=== PATIENT | female | born 1995 | race American Indian/Alaskan Native ===

== ENCOUNTER 2019-10-22 20:25 | Inpatient (IN) | payer BC, OTHER ==
[2019-10-22] MEDS ORDERED: Tranexamic Acid 1,000 MG in Sodium Chloride 0.9% 100 ML IV PRN (22:15)
[2019-10-22] MEDS ORDERED: Butorphanol 1 MG/ML SDV IVPUSH PRN (22:15)
[2019-10-22] MEDS ORDERED: Water For Irrigation,Sterile 1,000 ML Container IRR PRN (22:15)
[2019-10-22] MEDS ORDERED: Misoprostol 200 MCG Tab PO PRN (22:15)
[2019-10-22] MEDS ORDERED: Sodium Chloride 0.9% 2.5 ML Syringe FLUSH PRN (22:15)
[2019-10-22] MEDS ORDERED: Sodium Chloride 0.9% 10 ML SDV IV PRN (22:15)
[2019-10-22] MEDS ORDERED: Methylergonovine 0.2 MG/1 ML Amp IM PRN (22:15)
[2019-10-22] MEDS ORDERED: Lactated Ringers 1,000 ML IV SCH (22:15)
[2019-10-22] MEDS ORDERED: Lidocaine 1% 50 ML MDV INJECT PRN (22:15)
[2019-10-22] MEDS ORDERED: Nalbuphine 10 MG/1 ML Vial IVPUSH PRN (22:15)
[2019-10-22] MEDS ORDERED: Sodium Chloride 0.9% 10 ML Syringe FLUSH PRN (22:15)
[2019-10-22] MEDS ORDERED: Carboprost Tromethamine 250 MCG/1 ML Amp IM PRN (22:15)
[2019-10-22] MEDS: Oxytocin/0.9 % Sodium Chloride 30 UNIT/500 ML BAG IV SCH (23:10)
[2019-10-22] MEDS ORDERED: fentaNYL 100 MCG/2 ML SDV ONE (23:46)
[2019-10-22] MEDS ORDERED: Midazolam 1 MG/ML 2 ML SDV ONE (23:51)
[2019-10-23] MEDS ORDERED: Benzocaine/Menthol 20%-0.5% Spray 78 GM Cannister TOP PRN (00:15)
[2019-10-23] MEDS ORDERED: oxyCODONE 5 MG Tab PO PRN (00:15)
[2019-10-23] MEDS ORDERED: Aluminum Hydroxide/Magnesium Hydroxide/Simethicone Susp 30 ML Cup PO PRN (00:15)
[2019-10-23] MEDS ORDERED: Lanolin 100% Cream 7 GM Tube TOP PRN (00:15)
[2019-10-23] MEDS ORDERED: Ondansetron 4 MG/2 ML SDV IVPUSH PRN (00:15)
[2019-10-23] MEDS ORDERED: Witch Hazel Medicated Pads 40/Jar TOP PRN (00:15)
[2019-10-23] MEDS ORDERED: Bisacodyl 10 MG Supp RECTAL PRN (00:15)
[2019-10-23] MEDS ORDERED: Ibuprofen 400 MG Tab PO PRN (00:15)
[2019-10-23] MEDS ORDERED: Ibuprofen 800 MG Tab PO PRN (00:15)
[2019-10-23] MEDS ORDERED: Docusate Sodium 100 MG Cap PO PRN (00:15)
[2019-10-23] MEDS ORDERED: Acetaminophen 500 MG Tab PO PRN (00:15)
--- NOTE | 2019-10-23 00:23 | PCM.SN ---
- Free Text/Narrative Note: 2250: Nurse called for epidural per patient request. Arrived at 2301 and patient already pushing with Dr. Quinonez in the room. On standby for any complications or emergencies. Morgan Sheehan CRNA. 2348: Dr Quinonez requests pain control for assistance with removal of retained placenta immediately post delivery. Patient having extreme pain with manual attempts. 2351: Fentanyl 100 mcg given IV. VSS. Patient still with lots of pain with attempt to remove. Explained effects of versed to help patient better manage pain. Patient verbalizes understanding and ok to receive. 2355: Versed 2 mg and Fentanyl 50 mcg given IV. 6L O2 placed on patient. VSS. 2357: Fentanyl 50 mcg given IV. Another attempt to remove retained placenta per Dr. Quinonez was unsuccessful due to patient thriving in pain. At this time, Dr. Quinonez plans to take patient to OR for removal of retained placenta. Consent will be obtained via 2 providers or from patient's mother as patient is no longer able to give informed consent due to medications given for initial attempts to remove retained placenta. Significant other present is boyfriend. Morgan Sheehan CRNA.
--- NOTE | 2019-10-23 00:26 | PCM.OPNOTE ---
- General Post-Op/Procedure Note Date of Surgery/Procedure: 10/23/19 Operative Procedure(s): /IP Findings: Viable female APGARs 8, 9 weight 6 lb 8 oz Retained placenta Pre Op Diagnosis: 38/4 week IUP. Active labor Post-Op Diagnosis: Same. Retained placenta Anesthesia Technique: Local (pudendal) Primary Surgeon: Allison Quinonez EBL in mLs: 300 Drain/Tube Comments:: none known Complications: none known Condition: Good Free Text/Narrative:: Dictation [id number]
--- NOTE | 2019-10-23 00:28 | PCM.PREANE ---
Preanesthetic Assessment - Procedure Proposed Procedure: Manual extraction of retained placenta & curretage status post Delivery. - Anesthesia/Transfusion/Family Hx Anesthesia History: No Prior Anesthesia Family History of Anesthesia Reaction: No Transfusion History: No Prior Transfusion(s) - Review of Systems General: No Symptoms Pulmonary: No Symptoms Cardiovascular: No Symptoms Gastrointestinal: No Symptoms Neurological: No Symptoms Other: Reports: None - Physical Assessment Height: 5 ft 9 in ASA Class: 2E Mental Status: Alert & Oriented x3 Airway Class: Mallampati = 1 Dentition: Reports: Normal Dentition Thyro-Mental Finger Breadths: 3 Mouth Opening Finger Breadths: 3 ROM/Head Extension: Full Lungs: Clear to Auscultation, Normal Respiratory Effort Cardiovascular: Regular Rate, Regular Rhythm - Lab Values: Laboratory Last Values WBC 16.71 K/uL (4.0-11.0) H 10/22/19 22:45 RBC 4.27 M/uL (4.30-5.90) L 10/22/19 22:45 Hgb 12.9 g/dL (12.0-16.0) 10/22/19 22:45 Hct 38.7 % (36.0-46.0) 10/22/19 22:45 MCV 90.6 fL (80.0-98.0) 10/22/19 22:45 MCH 30.2 pg (27.0-32.0) 10/22/19 22:45 MCHC 33.3 g/dL (31.0-37.0) 10/22/19 22:45 RDW Std Deviation 43.4 fl (28.0-62.0) 10/22/19 22:45 RDW Coeff of Jeronimo 13 % (11.0-15.0) 10/22/19 22:45 Plt Count 301 K/uL (150-400) 10/22/19 22:45 MPV 9.70 fL (7.40-12.00) 10/22/19 22:45 Nucleated RBC % 0.0 /100WBC 10/22/19 22:45 Nucleated RBCs # 0 K/uL 10/22/19 22:45 Urine Color YELLOW 10/22/19 20:15 Urine Appearance SLT CLOUDY 10/22/19 20:15 Urine pH 7.0 (5.0-8.0) 10/22/19 20:15 Ur Specific [place] 1.015 (1.001-1.035) 10/22/19 20:15 Urine Protein NEGATIVE mg/dL (NEGATIVE) 10/22/19 20:15 Urine Glucose (UA) NEGATIVE mg/dL (NEGATIVE) 10/22/19 20:15 Urine Ketones NEGATIVE mg/dL (NEGATIVE) 10/22/19 20:15 Urine Occult Blood NEGATIVE (NEGATIVE) 10/22/19 20:15 Urine Nitrite NEGATIVE (NEGATIVE) 10/22/19 20:15 Urine Bilirubin NEGATIVE (NEGATIVE) 10/22/19 20:15 Urine Urobilinogen 0.2 EU/dL (<2.0) 10/22/19 20:15 Ur Leukocyte Esterase MODERATE (NEGATIVE) H 10/22/19 20:15 Urine RBC 0-2 (0-2/HPF) 10/22/19 20:15 Urine WBC 2-5 (0-5/HPF) 10/22/19 20:15 Ur Epithelial Cells FEW (NONE-FEW) 10/22/19 20:15 Urine Bacteria 1+ (NEGATIVE) H 10/22/19 20:15 Membrane Rupture POSITIVE 10/22/19 22:00 Blood Type A POSITIVE 10/22/19 22:53 Antibody Screen NEGATIVE 10/22/19 22:53 - Allergies Allergies/Adverse Reactions: Allergies Allergy/AdvReac Type Severity Reaction Status Date / Time No Known Allergies Allergy Verified 09/22/19 17:00 - Anesthesia Plan Free Text/Narrative:: Plan MAC anesthesia with sedation or general anesthesia using ETT. - Acknowledgements Anesthesia Type Planned: General Anesthesia, MAC Pt an Appropriate Candidate for the Planned Anesthesia: Yes Alternatives and Risks of Anesthesia Discussed w Pt/Guardian: Yes Pt/Guardian Understands and Agrees with Anesthesia Plan: Yes PreAnesthesia Questionnaire - Past Health History Medical/Surgical History: Denies Medical/Surgical History HEENT History: Reports: None Cardiovascular History: Reports: None Respiratory History: Reports: None Gastrointestinal History: Reports: GERD Genitourinary History: Reports: None SPINNERET PERSON History: Reports: : 2 Para: 2 Other OB/BYN History: Immediate post delivery (retained placenta) Musculoskeletal History: Reports: None Neurological History: Reports: None Psychiatric History: Reports: None Endocrine/Metabolic History: Reports: Hypothyroidism Hematologic History: Reports: None Immunologic History: Reports: None Oncologic (Cancer) History: Reports: None Dermatologic History: Reports: None - Infectious Disease History Infectious Disease History: Reports: None - Past Surgical History Head Surgeries/Procedures: Reports: None - SUBSTANCE USE Smoking Status *Q: Never Smoker - HOME MEDS Home Medications: Home Meds Levothyroxine [Synthroid] 50 mcg PO DAILY 08/05/19 [History] - CURRENT (IN HOUSE) MEDS Current Meds: Current Medications Acetaminophen (Tylenol Extra Strength) 500 mg PO Q4H PRN PRN Reason: Pain Acetaminophen (Tylenol Extra Strength) 1,000 mg PO Q4H PRN PRN Reason: Pain Al Hydroxide/Mg Hydroxide (Mag-Al Plus) 30 ml PO Q8H PRN PRN Reason: Heartburn Benzocaine/Menthol (Dermoplast Pain Relief 20%-0.5% [place]) 78 gm TOP ASDIRECTED PRN PRN Reason: Perineal Comfort Measure Bisacodyl (Dulcolax) 10 mg RECTAL ONETIME PRN PRN Reason: Constipation Butorphanol Tartrate (Stadol) 1 mg IVPUSH Q1H PRN PRN Reason: Pain Docusate Sodium (Colace) 100 mg PO BID PRN PRN Reason: Constipation Emollient Ointment (Lansinoh Hpa) 0 gm TOP ASDIRECTED PRN PRN Reason: Sore Nipples Lactated Ringer's (Ringers, Lactated) 1,000 mls @ 150 mls/hr IV ASDIRECTED BRIAN Oxytocin/Sodium Chloride (Oxytocin 30 Unit/500 Ml-Ns) 30 unit in 500 mls @ 999 mls/hr IV TITRATE BRIAN Tranexamic Acid 1,000 mg/ (Sodium Chloride) 110 mls @ 660 mls/hr IV ONETIME PRN PRN Reason: Bleeding Ibuprofen (Motrin) 400 mg PO Q4H PRN PRN Reason: Pain Ibuprofen (Motrin) 800 mg PO Q6H PRN PRN Reason: Pain Lidocaine HCl (Xylocaine 1%) 50 ml INJECT ONETIME PRN PRN Reason: Laceration repair Methylergonovine Maleate (Methergine) 0.2 mg IM ASDIRECTED PRN PRN Reason: Post Hemorrhage Nalbuphine HCl (Nubain) 10 mg IVPUSH Q1H PRN PRN Reason: Pain (severe 7-10) Ondansetron HCl (Zofran) 4 mg IVPUSH Q6H PRN PRN Reason: Nausea/Vomiting Oxycodone HCl (Oxycodone) 5 mg PO Q2H PRN PRN Reason: Pain Sodium Chloride (Saline Flush) 10 ml FLUSH ASDIRECTED PRN PRN Reason: Keep Vein Open Sodium Chloride (Saline Flush) 2.5 ml FLUSH ASDIRECTED PRN PRN Reason: Keep Vein Open Sodium Chloride (Normal Saline) 10 ml IV ASDIRECTED PRN PRN Reason: IV Use Sterile Water (Sterile Water For Irrigation) 1,000 ml IRR ASDIRECTED PRN PRN Reason: delivery Naresh Bernard (Tucks) 1 pad TOP ASDIRECTED PRN PRN Reason: comfort care Discontinued Medications Carboprost Tromethamine (Hemabate Ds) 250 mcg IM ASDIRECTED PRN PRN Reason: Post Hemorrhage Stop: 10/23/19 00:12 Fentanyl (Sublimaze) Confirm Administered Dose 200 mcg .ROUTE .STK-MED ONE Stop: 10/22/19 23:47 Midazolam HCl (Versed 1 Mg/Ml) Confirm Administered Dose 2 mg .ROUTE .STK-MED ONE Stop: 10/22/19 23:52 Misoprostol (Cytotec) 200 mcg PO ONETIME PRN PRN Reason: Post Hemorrhage
[2019-10-23] MEDS ORDERED: Propofol 200 MG/20 ML SDV ONE (00:35)
[2019-10-23] MEDS ORDERED: fentaNYL 100 MCG/2 ML SDV ONE (00:35)
[2019-10-23] MEDS: Oxytocin/0.9 % Sodium Chloride 30 UNIT/500 ML BAG IV SCH (00:36)
[2019-10-23] MEDS ORDERED: Midazolam 1 MG/ML 2 ML SDV ONE (00:45)
[2019-10-23] MEDS ORDERED: Ampicillin/Sulbactam Na 3 GM in Sodium Chloride 0.9% 100 ML IV ONE (01:17)
--- NOTE | 2019-10-23 01:24 | PCM.OPNOTE ---
- General Post-Op/Procedure Note Date of Surgery/Procedure: 10/23/19 Operative Procedure(s): Manual extraction of placenta with curretage Findings: Retained placenta, extracted Pre Op Diagnosis: Retained placenta Post-Op Diagnosis: Same Anesthesia Technique: General ET Tube Primary Surgeon: Allison Quinonez EBL in mLs: 100 (400 ml total with ) Complications: none known Condition: Stable Free Text/Narrative:: Dictation [id number]
[2019-10-23] MEDS ORDERED: Ketorolac 30 MG/ML SDV ONE (01:26)
[2019-10-23] MEDS ORDERED: Ondansetron 4 MG/2 ML SDV ONE (01:26)
[2019-10-23] MEDS ORDERED: Sodium Chloride 0.9% 100 ML ONE (01:29)
--- NOTE | 2019-10-23 02:05 | PCM.POSTAN ---
POST ANESTHESIA ASSESSMENT - MENTAL STATUS Mental Status: Alert, Oriented - VITAL SIGNS Vital Signs: Last Vital Signs Temp 36.3 C 10/23/19 01:11 Pulse 89 10/23/19 01:55 Resp 2 L 10/23/19 01:55 BP 109/73 10/23/19 01:55 Pulse Ox 96 10/23/19 01:55 - RESPIRATORY Respiratory Status: Respiratory Rate WNL, Airway Patent, O2 Saturation Stable - CARDIOVASCULAR CV Status: Pulse Rate WNL, Blood Pressure Stable - GASTROINTESTINAL GI Status: No Symptoms - PAIN Pain Score: 0 - POST OP HYDRATION Hydration Status: Adequate & Stable - OBSERVATIONS Free Text/Narrative:: Patient doing well. No anesthesia concerns from patient. No anesthesia complications noted.
--- NOTE | 2019-10-23 03:20 | OR ---
SURGEON: Allison Quinonez M.D. DATE OF PROCEDURE: 10/23/2019 PREOPERATIVE DIAGNOSES: 1. 38 and 4 weeks' intrauterine . 2. Active labor. POSTOPERATIVE DIAGNOSES: 1. 38 and 4 weeks' intrauterine . 2. Active labor. 3. Retained placenta. ANESTHESIA: Local, pudendal. ESTIMATED BLOOD LOSS: 300 mL. COMPLICATIONS: Retained placenta. FINDINGS: Viable female. score of 8 at one minute and 9 at five minutes. Weight is 6 pounds 8 ounces. Retained placenta. DISPOSITION: The patient to OR for removal of placenta under anesthesia. Infant to nursery. PROCEDURE DETAIL: Tani is a 24-year-old, G2, P1, at 38 and 4 weeks' gestational age, presented on the evening of 10/22/2019 with rare contractions, however, they persisted throughout the day. Therefore, she was observed, and with observation, contractions became more regular. She did notice a gush of fluid. She was found to have gross rupture of membranes, clear fluid. She is group B beta strep negative, and shortly thereafter, contractions became much more intense very quickly. She progressed from 4 to 6 cm within a matter of minute. heart tones are 140s with variability. The patient was admitted. Routine labs were drawn. IV hydration was initiated. She did request epidural; however, she progressed quickly to 7 and then complete, was feeling the urge to push. The patient was placed in modified dorsal lithotomy position, was prepped and draped in the usual aseptic manner. With the urge, began pushing efforts, pushed adequately, however, was very uncomfortable and therefore underwent a pudendal block. The ischial spine on either side were palpated and just lateral to this, the pudendal nerves were able to be palpated. 5 mL of 1% lidocaine with epi was infused on the right side followed by the left side and the midline perineum. The patient tolerated this well, became more comfortable, continued with pushing efforts, was able to deliver the 's head atraumatically spontaneously, followed by anterior shoulder, posterior shoulder, and remainder of the body without difficulty. The infant's oropharynx and nares were bulb suctioned. The infant was handed off to her mother with attending nursing staff at the side. After a delay, the cord was clamped x2 and cut. Cord arterial, cord venous, cord blood sampling was obtained. Light pressure was applied. The placenta did not easily deliver. 30 units of Pitocin was delivered in 500 mL of IV fluid. With fundal massage and observation, the placenta still did not deliver even after 30 minutes of bleeding. The patient did not have regional anesthesia. Therefore, with Anesthesia present, she underwent dosing of fentanyl and Versed and attempted manual extraction. However, the patient was still quite uncomfortable. Therefore, at this point, I have opted to proceed to the OR for exam under anesthesia with manual placental extraction. The patient remains stable at this time. The nursing checking department supervisor in the OR crew has been called. Hemostasis is overall evident and vital signs are stable. HADLEY / SHANNAN /[id number]
[2019-10-23] MEDS: Acetaminophen 500 MG Tab PO PRN ×2 (07:49→20:24)
[2019-10-23] MEDS ORDERED: Sodium Chloride 0.9% 50 ML ONE ×3 (07:56→19:46)
[2019-10-23] MEDS: Ampicillin/Sulbactam Na 1.5 GM in Sodium Chloride 0.9% 50 ML IV SCH ×3 (08:01→20:10)
--- NOTE | 2019-10-23 11:53 | PCM.PNPP ---
- General Info Date of Service: 10/23/19 Functional Status: Reports: Pain Controlled, Tolerating Diet, Ambulating, Urinating - Review of Systems General: Reports: Fatigue. Denies: Fever, Weakness Pulmonary: Denies: Shortness of Breath Cardiovascular: Denies: Chest Pain, Palpitations, Lightheadedness Gastrointestinal: Denies: Abdominal Pain, Nausea, Vomiting Genitourinary: Denies: Flank Pain Musculoskeletal: Reports: No Symptoms Skin: Reports: No Symptoms Neurological: Reports: No Symptoms Psychiatric: Reports: No Symptoms - General Info Date of Service: 10/23/19 - Patient Data Vital Signs - Most Recent: Last Vital Signs Temp 36.5 C 10/23/19 08:55 Pulse 89 10/23/19 06:00 Resp 19 10/23/19 08:55 BP 121/74 10/23/19 08:55 Pulse Ox 98 10/23/19 08:55 Weight - Most Recent: 94.801 kg I&O - Last 24 Hours: Intake & Output 10/22/19 10/23/19 10/23/19 22:59 06:59 14:59 Intake Total 600 Balance 600 Lab Results - Last 24 Hours: Laboratory Results - last 24 hr 10/22/19 10/22/19 10/22/19 Range/Units 20:15 20:15 22:00 WBC (4.0-11.0) K/uL RBC (4.30-5.90) M/uL Hgb (12.0-16.0) g/dL Hct (36.0-46.0) % MCV (80.0-98.0) fL MCH (27.0-32.0) pg MCHC (31.0-37.0) g/dL RDW Std Deviation (28.0-62.0) fl RDW Coeff of Jeronimo (11.0-15.0) % Plt Count (150-400) K/uL MPV (7.40-12.00) fL Nucleated RBC % /100WBC Nucleated RBCs # K/uL Cord ABG pH (7.18-7.38) Cord ABG Base Excess (-10--2) Cord VBG pH (7.25-7.45) Cord VBG Base Excess (-10--2) Urine Color YELLOW YELLOW Urine Appearance SLT CLOUDY SLT CLOUDY Urine pH 7.0 7.0 (5.0-8.0) Ur Specific [place] 1.015 1.015 (1.001-1.035) Urine Protein NEGATIVE NEGATIVE (NEGATIVE) mg/dL Urine Glucose (UA) NEGATIVE NEGATIVE (NEGATIVE) mg/dL Urine Ketones NEGATIVE NEGATIVE (NEGATIVE) mg/dL Urine Occult Blood NEGATIVE NEGATIVE (NEGATIVE) Urine Nitrite NEGATIVE NEGATIVE (NEGATIVE) Urine Bilirubin NEGATIVE NEGATIVE (NEGATIVE) Urine Urobilinogen 0.2 0.2 (<2.0) EU/dL Ur Leukocyte Esterase MODERATE H MODERATE H (NEGATIVE) Urine RBC 0-2 (0-2/HPF) Urine WBC 2-5 (0-5/HPF) Ur Epithelial Cells FEW (NONE-FEW) Urine Bacteria 1+ H (NEGATIVE) Membrane Rupture POSITIVE Blood Type Antibody Screen 10/22/19 10/22/19 10/22/19 Range/Units 22:45 22:53 23:07 WBC 16.71 H (4.0-11.0) K/uL RBC 4.27 L (4.30-5.90) M/uL Hgb 12.9 (12.0-16.0) g/dL Hct 38.7 (36.0-46.0) % MCV 90.6 (80.0-98.0) fL MCH 30.2 (27.0-32.0) pg MCHC 33.3 (31.0-37.0) g/dL RDW Std Deviation 43.4 (28.0-62.0) fl RDW Coeff of Jeronimo 13 (11.0-15.0) % Plt Count 301 (150-400) K/uL MPV 9.70 (7.40-12.00) fL Nucleated RBC % 0.0 /100WBC Nucleated RBCs # 0 K/uL Cord ABG pH 7.220 (7.18-7.38) Cord ABG Base Excess -6 (-10--2) Cord VBG pH 7.306 (7.25-7.45) Cord VBG Base Excess -6 (-10--2) Urine Color Urine Appearance Urine pH (5.0-8.0) Ur Specific [place] (1.001-1.035) Urine Protein (NEGATIVE) mg/dL Urine Glucose (UA) (NEGATIVE) mg/dL Urine Ketones (NEGATIVE) mg/dL Urine Occult Blood (NEGATIVE) Urine Nitrite (NEGATIVE) Urine Bilirubin (NEGATIVE) Urine Urobilinogen (<2.0) EU/dL Ur Leukocyte Esterase (NEGATIVE) Urine RBC (0-2/HPF) Urine WBC (0-5/HPF) Ur Epithelial Cells (NONE-FEW) Urine Bacteria (NEGATIVE) Membrane Rupture Blood Type A POSITIVE Antibody Screen NEGATIVE Med Orders - Current: Current Medications Acetaminophen (Tylenol Extra Strength) 500 mg PO Q4H PRN PRN Reason: Pain Acetaminophen (Tylenol Extra Strength) 1,000 mg PO Q4H PRN PRN Reason: Pain Last Admin: 10/23/19 07:49 Dose: 1,000 mg Al Hydroxide/Mg Hydroxide (Mag-Al Plus) 30 ml PO Q8H PRN PRN Reason: Heartburn Benzocaine/Menthol (Dermoplast Pain Relief 20%-0.5% [place]) 78 gm TOP ASDIRECTED PRN PRN Reason: Perineal Comfort Measure Bisacodyl (Dulcolax) 10 mg RECTAL ONETIME PRN PRN Reason: Constipation Butorphanol Tartrate (Stadol) 1 mg IVPUSH Q1H PRN PRN Reason: Pain Last Admin: 10/22/19 22:30 Dose: 1 mg Docusate Sodium (Colace) 100 mg PO BID PRN PRN Reason: Constipation Emollient Ointment (Lansinoh Hpa) 0 gm TOP ASDIRECTED PRN PRN Reason: Sore Nipples Lactated Ringer's (Ringers, Lactated) 1,000 mls @ 150 mls/hr IV ASDIRECTED [facility] Last Admin: 10/23/19 06:39 Dose: 150 mls/hr Oxytocin/Sodium Chloride (Oxytocin 30 Unit/500 Ml-Ns) 30 unit in 500 mls @ 999 mls/hr IV TITRATE [facility] Last Admin: 10/23/19 00:36 Dose: 999 mls/hr Tranexamic Acid 1,000 mg/ (Sodium Chloride) 110 mls @ 660 mls/hr IV ONETIME PRN PRN Reason: Bleeding Ampicillin Sodium/Sulbactam (Sodium 1.5 gm/ Sodium Chloride) 50 mls @ 200 mls/ hr IV Q6H [facility] Stop: 10/23/19 19:44 Last Admin: 10/23/19 08:01 Dose: 200 mls/hr Ibuprofen (Motrin) 400 mg PO Q4H PRN PRN Reason: Pain Ibuprofen (Motrin) 800 mg PO Q6H PRN PRN Reason: Pain Lidocaine HCl (Xylocaine 1%) 50 ml INJECT ONETIME PRN PRN Reason: Laceration repair Methylergonovine Maleate (Methergine) 0.2 mg IM ASDIRECTED PRN PRN Reason: Post Hemorrhage Last Admin: 10/23/19 06:35 Dose: 0.2 mg Nalbuphine HCl (Nubain) 10 mg IVPUSH Q1H PRN PRN Reason: Pain (severe 7-10) Ondansetron HCl (Zofran) 4 mg IVPUSH Q6H PRN PRN Reason: Nausea/Vomiting Oxycodone HCl (Oxycodone) 5 mg PO Q2H PRN PRN Reason: Pain Sodium Chloride (Saline Flush) 10 ml FLUSH ASDIRECTED PRN PRN Reason: Keep Vein Open Sodium Chloride (Saline Flush) 2.5 ml FLUSH ASDIRECTED PRN PRN Reason: Keep Vein Open Sodium Chloride (Normal Saline) 10 ml IV ASDIRECTED PRN PRN Reason: IV Use Sterile Water (Sterile Water For Irrigation) 1,000 ml IRR ASDIRECTED PRN PRN Reason: delivery Witch Joana (Tucks) 1 pad TOP ASDIRECTED PRN PRN Reason: comfort care Discontinued Medications Carboprost Tromethamine (Hemabate Ds) 250 mcg IM ASDIRECTED PRN PRN Reason: Post Hemorrhage Stop: 10/23/19 00:12 Fentanyl (Sublimaze) Confirm Administered Dose 200 mcg .ROUTE .STK-MED ONE Stop: 10/22/19 23:47 Fentanyl (Sublimaze) Confirm Administered Dose 100 mcg .ROUTE .STK-MED ONE Stop: 10/23/19 00:36 Ampicillin Sodium/Sulbactam (Sodium 3 gm/ Sodium Chloride) 100 mls @ 200 mls/ hr IV ONETIME ONE Stop: 10/23/19 01:46 Last Admin: 10/23/19 01:37 Dose: 200 mls/hr Sodium Chloride (Normal Saline) Confirm Administered Dose 100 mls @ as directed .ROUTE .STK-MED ONE Stop: 10/23/19 01:30 Sodium Chloride (Normal Saline) Confirm Administered Dose 50 mls @ as directed .ROUTE .STK-MED ONE Stop: 10/23/19 07:57 Ketorolac Tromethamine (Toradol) Confirm Administered Dose 30 mg .ROUTE .STK- MED ONE Stop: 10/23/19 01:27 Midazolam HCl (Versed 1 Mg/Ml) Confirm Administered Dose 2 mg .ROUTE .STK-MED ONE Stop: 10/22/19 23:52 Midazolam HCl (Versed 1 Mg/Ml) Confirm Administered Dose 2 mg .ROUTE .STK-MED ONE Stop: 10/23/19 00:46 Misoprostol (Cytotec) 200 mcg PO ONETIME PRN PRN Reason: Post Hemorrhage Ondansetron HCl (Zofran) Confirm Administered Dose 4 mg .ROUTE .STK-MED ONE Stop: 10/23/19 01:27 Propofol (Diprivan 20 Ml) Confirm Administered Dose 200 mg .ROUTE .STK-MED ONE Stop: 10/23/19 00:36 - Infant Interaction Support Person: Significant Other - Recovery Exam Fundal Tone: Firm Fundal Level: At Umbilicus Fundal Placement: Left Lochia Amount: Small, Moderate Lochia Color: Rubra/Red Perineum Description: Intact, Minimal Bruising/Swelling, Edematous Bladder Status: Voiding Urinary Elimination: Voided - Exam General: Alert, Oriented Lungs: Normal Respiratory Effort Cardiovascular: Regular Rate, Regular Rhythm GI/Abdominal Exam: Normal Bowel Sounds, Soft Extremities: Pedal Edema (trace). No: Nico's Sign Skin: Warm, Dry, Intact Neurological: No New Focal Deficit Psy/Mental Status: Alert, Normal Affect, Normal Mood - Problem List & Annotations (1) Vaginal delivery SNOMED Code(s): 689695102 Code(s): O80 - ENCOUNTER FOR FULL-TERM UNCOMPLICATED DELIVERY Status: Acute Current Visit: No (2) Retained placenta NOS-unsp SNOMED Code(s): 824550424 Code(s): O73.0 - RETAINED PLACENTA WITHOUT HEMORRHAGE Status: Acute Current Visit: Yes - Problem List Review Problem List Initiated/Reviewed/Updated: Yes - My Orders Last 24 Hours: My Active Orders 10/22/19 20:15 CULTURE URINE [RM] Stat 10/22/19 20:31 Patient Status [ADT] Routine Non Stress Test [RC] PER UNIT ROUTINE Up ad Chichi [RC] ASDIRECTED Vital Signs [RC] PER UNIT ROUTINE Resuscitation Status Routine 10/22/19 22:15 Butorphanol [Stadol] 1 mg IVPUSH Q1H PRN Lactated Ringers [Ringers, Lactated] 1,000 ml IV ASDIRECTED Lidocaine 1% [Xylocaine 1%] 50 ml INJECT ONETIME PRN Methylergonovine [Methergine] 0.2 mg IM ASDIRECTED PRN Nalbuphine [Nubain] 10 mg IVPUSH Q1H PRN Oxytocin/0.9 % Sodium Chloride [Oxytocin 30 Unit/500 ML-NS] 30 unit in 500 ml IV TITRATE Sodium Chloride 0.9% [Normal Saline] 10 ml IV ASDIRECTED PRN Sodium Chloride 0.9% [Saline Flush] 10 ml FLUSH ASDIRECTED PRN Sodium Chloride 0.9% [Saline Flush] 2.5 ml FLUSH ASDIRECTED PRN Tranexamic Acid [Cyklokapron] 1,000 mg Sodium Chloride 0.9% [Normal Saline] 100 ml IV ONETIME Water For Irrigation,Sterile [Sterile Water for Irrigation] 1,000 ml IRR ASDIRECTED PRN 10/22/19 22:16 Patient Status [ADT] Routine Heart Tones [RC] CONTINUOUS Non Stress Test [RC] PER UNIT ROUTINE May Shower [RC] ASDIRECTED Notify Provider [RC] PRN Up ad [place]ichi [RC] ASDIRECTED Peripheral IV Insertion Adult [OM.PC] Routine 10/22/19 22:45 RPR (SYPHILIS SERO) W/ RFLX [REF] Routine 10/23/19 00:15 Patient Status [ADT] Routine Oxygen Therapy [RC] ASDIRECTED Up ad [place] [RC] ASDIRECTED Vital Signs [RC] PER UNIT ROUTINE Acetaminophen [Tylenol Extra Strength] 1,000 mg PO Q4H PRN Acetaminophen [Tylenol Extra Strength] 500 mg PO Q4H PRN Alum Hydrox/Mag Hydrox/Simeth [Mag-Al Plus] 30 ml PO Q8H PRN Benzocaine/Menthol [Dermoplast Pain Relief 20%-0.5% [place]] 78 gm TOP ASDIRECTED PRN Docusate Sodium [Colace] 100 mg PO BID PRN Ibuprofen [Motrin] 400 mg PO Q4H PRN Ibuprofen [Motrin] 800 mg PO Q6H PRN Lanolin [Lansinoh HPA] See Dose Instructions TOP ASDIRECTED PRN Ondansetron [Zofran] 4 mg IVPUSH Q6H PRN bisacodyL [Dulcolax] 10 mg RECTAL ONETIME PRN oxyCODONE 5 mg PO Q2H PRN witch Joana [Tucks] 1 pad TOP ASDIRECTED PRN Assess Lochia [WOMSER] Per Unit Routine Assess Uterine Involution [WOMSER] Per Unit Routine Peripheral IV Discontinue [OM.PC] Routine 10/23/19 00:16 Cooling Warming Measures [RC] ASDIRECTED Ice Therapy [OM.PC] Per Unit Routine Perineal Care [OM.PC] Per Unit Routine Sitz Bath [OM.PC] Per Unit Routine 10/23/19 07:30 Ampicillin/Sulbactam Na [Unasyn] 1.5 gm Sodium Chloride 0.9% [Normal Saline] 50 ml IV Q6H 10/23/19 12:00 CBC WITH AUTO DIFF [HEME] Routine 10/23/19 Breakfast Regular Diet [DIET] - Assessment Assessment:: PPD 1 status post /IP PPD 0 EUA with manual placenta extraction--on unasyn prophylactically 24 hours Mild uterine atony, s/p methergine x 1 - Plan Plan:: Patient is feeling well this morning. Will obtain CBC at noon. She is ambulating without difficulty and denies lightheadedness or dizziness. She is afebrile. Continue PP cares and if remains stable, plan DC tomorrow. Patient agrees to plan of care.
--- NOTE | 2019-10-23 12:07 | PCM48HPAN ---
Post Anesthesia Note - EVALUATION WITHIN 48HRS OF ANESTHETIC Vital Signs in Normal Range: Yes Patient Participated in Evaluation: Yes Respiratory Function Stable: Yes Airway Patent: Yes Cardiovascular Function Stable: Yes Hydration Status Stable: Yes Pain Control Satisfactory: Yes Nausea and Vomiting Control Satisfactory: Yes Mental Status Recovered: Yes Vital Signs: Last Vital Signs Temp 36.5 C 10/23/19 08:55 Pulse 89 10/23/19 06:00 Resp 19 10/23/19 08:55 BP 121/74 10/23/19 08:55 Pulse Ox 98 10/23/19 08:55 - COMMENTS/OBSERVATIONS Free Text/Narrative:: Patient sitting in bed doing well. Patient states "it doesn't even feel like I had a baby". No anesthesia complications or concerns noted.
--- NOTE | 2019-10-24 08:43 | OR ---
SURGEON: Allison Quinonez M.D. DATE OF PROCEDURE: 10/23/2019 PREOPERATIVE DIAGNOSIS: Retained placenta. POSTOPERATIVE DIAGNOSIS: Retained placenta, delivered. PRIMARY SURGEON: Allison Quinonez MD. ANESTHESIA: General endotracheal anesthesia. ESTIMATED BLOOD LOSS: 100 mL. COMPLICATIONS: None known. FINDINGS: Retained placenta. DISPOSITION: The patient to PACU, stable. PROCEDURE DETAILS: Tani is a 24-year-old, G2, P2, who underwent spontaneous vaginal delivery this evening, and after observation, the placenta was not spontaneously delivering. We waited an hour with no delivery. The patient did not receive an epidural and she labored quite quickly. Therefore, at this time we feel it is best to proceed with exam under anesthesia with extraction of the placenta manually. The risks of procedure discussed with the patient's significant other including infection and bleeding. Proper consent was obtained. The patient was taken the operating room where she underwent general endotracheal anesthesia, was placed in modified dorsal lithotomy position, was prepped and draped in the usual sterile fashion. Bladder was drained. The fundus was able to be palpated externally and was able to extract the placenta manually, was able to palpate along the fundus and then gentle curettage was performed with a sharp curette. Hemostasis appeared evident at this time. The placenta will be sent to pathology for further analysis. Once again, swept the uterine cavity. Uterine fundal massage was performed. Uterus appears firm. Hemostasis appeared evident. Inspection of cervix, vaginal sidewalls and perineum revealed no evidence of lacerations. The patient tolerated the procedure well. She will go to PACU in stable condition. Sponge and instrument counts were correct. HADLEY / SHANNAN /[id number]
--- NOTE | 2019-10-24 10:01 | PCM.PNPP ---
- General Info Date of Service: 10/24/19 Functional Status: Reports: Pain Controlled, Tolerating Diet, Ambulating, Urinating - Review of Systems General: Reports: No Symptoms HEENT: Reports: No Symptoms Pulmonary: Reports: No Symptoms Cardiovascular: Reports: No Symptoms Gastrointestinal: Reports: No Symptoms Genitourinary: Reports: No Symptoms Musculoskeletal: Reports: No Symptoms Skin: Reports: No Symptoms Neurological: Reports: No Symptoms Psychiatric: Reports: No Symptoms - Patient Data Vital Signs - Most Recent: Last Vital Signs Temp 35.7 C L 10/24/19 08:07 Pulse 64 10/24/19 08:07 Resp 16 10/24/19 08:07 BP 96/55 L 10/24/19 08:07 Pulse Ox 96 10/24/19 08:07 Weight - Most Recent: 94.801 kg Lab Results - Last 24 Hours: Laboratory Results - last 24 hr 10/23/19 Range/Units 12:07 WBC 17.50 H (4.0-11.0) K/uL RBC 3.23 L (4.30-5.90) M/uL Hgb 9.7 L (12.0-16.0) g/dL Hct 29.5 L (36.0-46.0) % MCV 91.3 (80.0-98.0) fL MCH 30.0 (27.0-32.0) pg MCHC 32.9 (31.0-37.0) g/dL RDW Std Deviation 44.5 (28.0-62.0) fl RDW Coeff of Jeronimo 13 (11.0-15.0) % Plt Count 249 (150-400) K/uL MPV 9.30 (7.40-12.00) fL Neut % (Auto) 79.6 (48.0-80.0) % Lymph % (Auto) 12.9 L (16.0-40.0) % [place] % (Auto) 7.3 (0.0-15.0) % Eos % (Auto) 0.1 (0.0-7.0) % Baso % (Auto) 0.1 (0.0-1.5) % Neut # (Auto) 14.0 H (1.4-5.7) K/uL Lymph # (Auto) 2.3 (0.6-2.4) K/uL Cam[place] # (Auto) 1.3 H (0.0-0.8) K/uL Eos # (Auto) 0.0 (0.0-0.7) K/uL Baso # (Auto) 0.0 (0.0-0.1) K/uL Nucleated RBC % 0.0 /100WBC Nucleated RBCs # 0 K/uL Micro Results - Last 24 Hours: Microbiology 10/22/19 20:15 Urine Culture - Final Urine, Clean Catch MIXED ANTON 10,000-100,000 CFU/ML Med Orders - Current: Current Medications Acetaminophen (Tylenol Extra Strength) 500 mg PO Q4H PRN PRN Reason: Pain Acetaminophen (Tylenol Extra Strength) 1,000 mg PO Q4H PRN PRN Reason: Pain Last Admin: 10/23/19 20:24 Dose: 1,000 mg Al Hydroxide/Mg Hydroxide (Mag-Al Plus) 30 ml PO Q8H PRN PRN Reason: Heartburn Benzocaine/Menthol (Dermoplast Pain Relief 20%-0.5% [place]) 78 gm TOP ASDIRECTED PRN PRN Reason: Perineal Comfort Measure Bisacodyl (Dulcolax) 10 mg RECTAL ONETIME PRN PRN Reason: Constipation Butorphanol Tartrate (Stadol) 1 mg IVPUSH Q1H PRN PRN Reason: Pain Last Admin: 10/22/19 22:30 Dose: 1 mg Docusate Sodium (Colace) 100 mg PO BID PRN PRN Reason: Constipation Last Admin: 10/23/19 20:12 Dose: 100 mg Emollient Ointment (Lansinoh Hpa) 0 gm TOP ASDIRECTED PRN PRN Reason: Sore Nipples Lactated Ringer's (Ringers, Lactated) 1,000 mls @ 150 mls/hr IV ASDIRECTED BRIAN Last Admin: 10/23/19 06:39 Dose: 150 mls/hr Oxytocin/Sodium Chloride (Oxytocin 30 Unit/500 Ml-Ns) 30 unit in 500 mls @ 999 mls/hr IV TITRATE [facility] Last Admin: 10/23/19 00:36 Dose: 999 mls/hr Tranexamic Acid 1,000 mg/ (Sodium Chloride) 110 mls @ 660 mls/hr IV ONETIME PRN PRN Reason: Bleeding Ibuprofen (Motrin) 400 mg PO Q4H PRN PRN Reason: Pain Ibuprofen (Motrin) 800 mg PO Q6H PRN PRN Reason: Pain Lidocaine HCl (Xylocaine 1%) 50 ml INJECT ONETIME PRN PRN Reason: Laceration repair Methylergonovine Maleate (Methergine) 0.2 mg IM ASDIRECTED PRN PRN Reason: Post Hemorrhage Last Admin: 10/23/19 06:35 Dose: 0.2 mg Nalbuphine HCl (Nubain) 10 mg IVPUSH Q1H PRN PRN Reason: Pain (severe 7-10) Ondansetron HCl (Zofran) 4 mg IVPUSH Q6H PRN PRN Reason: Nausea/Vomiting Oxycodone HCl (Oxycodone) 5 mg PO Q2H PRN PRN Reason: Pain Sodium Chloride (Saline Flush) 10 ml FLUSH ASDIRECTED PRN PRN Reason: Keep Vein Open Sodium Chloride (Saline Flush) 2.5 ml FLUSH ASDIRECTED PRN PRN Reason: Keep Vein Open Sodium Chloride (Normal Saline) 10 ml IV ASDIRECTED PRN PRN Reason: IV Use Sterile Water (Sterile Water For Irrigation) 1,000 ml IRR ASDIRECTED PRN PRN Reason: delivery Witch Joana (Tucks) 1 pad TOP ASDIRECTED PRN PRN Reason: comfort care Discontinued Medications Carboprost Tromethamine (Hemabate Ds) 250 mcg IM ASDIRECTED PRN PRN Reason: Post Hemorrhage Stop: 10/23/19 00:12 Fentanyl (Sublimaze) Confirm Administered Dose 200 mcg .ROUTE .STK-MED ONE Stop: 10/22/19 23:47 Fentanyl (Sublimaze) Confirm Administered Dose 100 mcg .ROUTE .STK-MED ONE Stop: 10/23/19 00:36 Ampicillin Sodium/Sulbactam (Sodium 3 gm/ Sodium Chloride) 100 mls @ 200 mls/ hr IV ONETIME ONE Stop: 10/23/19 01:46 Last Admin: 10/23/19 01:37 Dose: 200 mls/hr Ampicillin Sodium/Sulbactam (Sodium 1.5 gm/ Sodium Chloride) 50 mls @ 200 mls/ hr IV Q6H BRIAN Stop: 10/23/19 19:44 Last Admin: 10/23/19 20:10 Dose: 200 mls/hr Sodium Chloride (Normal Saline) Confirm Administered Dose 100 mls @ as directed .ROUTE .STK-MED ONE Stop: 10/23/19 01:30 Sodium Chloride (Normal Saline) Confirm Administered Dose 50 mls @ as directed .ROUTE .STK-MED ONE Stop: 10/23/19 07:57 Sodium Chloride (Normal Saline) Confirm Administered Dose 50 mls @ as directed .ROUTE .STK-MED ONE Stop: 10/23/19 14:29 Sodium Chloride (Normal Saline) Confirm Administered Dose 50 mls @ as directed .ROUTE .STK-MED ONE Stop: 10/23/19 19:47 Ketorolac Tromethamine (Toradol) Confirm Administered Dose 30 mg .ROUTE .STK- MED ONE Stop: 10/23/19 01:27 Midazolam HCl (Versed 1 Mg/Ml) Confirm Administered Dose 2 mg .ROUTE .STK-MED ONE Stop: 10/22/19 23:52 Midazolam HCl (Versed 1 Mg/Ml) Confirm Administered Dose 2 mg .ROUTE .STK-MED ONE Stop: 10/23/19 00:46 Misoprostol (Cytotec) 200 mcg PO ONETIME PRN PRN Reason: Post Hemorrhage Ondansetron HCl (Zofran) Confirm Administered Dose 4 mg .ROUTE .STK-MED ONE Stop: 10/23/19 01:27 Propofol (Diprivan 20 Ml) Confirm Administered Dose 200 mg .ROUTE .STK-MED ONE Stop: 10/23/19 00:36 - Interaction Support Person: Significant Other - Recovery Exam Fundal Tone: Firm Fundal Level: 1 Fingerbreadths Below Umbilicus Fundal Placement: Midline Lochia Amount: Scant, Small Lochia Color: Rubra/Red Perineum Description: Intact, Minimal Bruising/Swelling, Edematous Bladder Status: Voiding Urinary Elimination: Voided - Exam General: Alert, Oriented Neck: Supple Lungs: Normal Respiratory Effort GI/Abdominal Exam: Soft, Non-Tender, No Distention Extremities: Non-Tender, No Pedal Edema, Normal Capillary Refill Skin: Warm, Dry, Intact Psy/Mental Status: Alert, Normal Affect, Normal Mood - Problem List Review Problem List Initiated/Reviewed/Updated: Yes - My Orders Last 24 Hours: My Active Orders 10/24/19 09:58 Ready for Discharge [RC] PER UNIT ROUTINE - Assessment Assessment:: PPD 2 after , with retained placenta, she has been afebrile, minimal lochia, would like to go home. - Plan Plan:: Discharge instructions reviewed.
== END 2019-10-24 12:10 | disposition home or self-care (01) | DRG 807 ==
LOC: MW.OB 20:25 → MW.OBCHECK 20:25 → MW.OB 22:16 → OBSVTOIN 23:07 → MW.OB 10-23 10:00
PROVIDERS: ADMIT Obstetrics & Gynecology; ATTEND Obstetrics & Gynecology
PROC: 10E0XZZ Delivery of Products of Conception, External Approach (ICD-10-PCS; principal; 2019-10-22)
PROC: 3E0R3BZ Introduction of Anesthetic Agent into Spinal Canal, Percutaneous Approach (ICD-10-PCS; 2019-10-22)
DX: O99.284 Endocrine, nutritional and metabolic diseases complicating childbirth (principal); Z37.0 Single live birth; E03.9 Hypothyroidism, unspecified; Z3A.38 38 weeks gestation of pregnancy; O72.1 Other immediate postpartum hemorrhage
CPT/HCPCS: 36415; 59025; 59409; 81001; 81003; 82803; 84112; 85025; 85027; 86592; 86593; 86850; 86900; 86901; 87086; 88307; A9270-GY; J0295; J0595; J1885; J2210; J2250; J2405; J2590; J2704; J3010; J7050; J7120

== ENCOUNTER 2020-09-10 05:10 | Emergency (ER) | payer OTHER ==
[2020-09-10] MEDS ORDERED: Dicyclomine 10 MG Cap PO ONE (05:34)
[2020-09-10] MEDS ORDERED: Alum Hydrox/Mag Hydrox/Simeth 15 ML, Lidocaine 2% 5 ML PO ONE ×2 (05:34)
[2020-09-10] MEDS ORDERED: Omeprazole 20 MG Cap.CR PO ONE (05:35)
[2020-09-10 06:11] LABS: BLOOD UREA NITROGEN,BUN 20 mg/dL (7.0-18.0); CARBON DIOXIDE,CO2 24.4 mmol/L (21.0-32.0); CHLORIDE,CL 100 mmol/L (98-107); GLUCOSE RANDOM 96 mg/dL (74-106); LIPASE 106 U/L (73-393); POTASSIUM,K 3.6 mmol/L (3.5-5.1); SODIUM,NA 133 mmol/L (136-145)
--- NOTE | 2020-09-10 06:22 | EDM.PDOC ---
ED HPI GENERAL MEDICAL PROBLEM - General Chief Complaint: Abdominal Pain Stated Complaint: SEVERE ABDOMINAL PAIN Time Seen by Provider: 09/10/20 05:14 - History of Present Illness INITIAL COMMENTS - FREE TEXT/NARRATIVE: HISTORY AND PHYSICAL: History of present illness: This a 25-year-old female who presents ER today complaining of midepigastric abdominal pain times several weeks. Patient reports she has an appointment with her primary care physician in 2 to 3 weeks however she is busy to [place] and is having increasing abdominal discomfort in the midepigastric region. Patient has any recent fevers, shakes, chills, nausea, vomiting, diarrhea, dysuria, frequency, urgency, chest pain, shortness of breath, melena, bright red blood per rectum. Patient reports that she had lasagna this evening and shortly thereafter the pain started. Patient reports that he tried some Tums with some minimal relief. Review of systems: As per history of present illness and below otherwise all systems reviewed and negative. Past medical history: As per history of present illness and as reviewed below otherwise noncontributory. Surgical history: As per history of present illness and as reviewed below otherwise noncontributo ry. Social history: No reported history of drug or alcohol abuse. Family history: As per history of present illness and as reviewed below otherwise noncontributory. Physical exam: This patient was seen and evaluated during the 2019 SARS-CoV-2 novel coronavirus pandemic period. Community viral transmission is ongoing at time of this encounter and the emergency department is operating under pandemic response procedures. Constitutional: Patient is oriented to person, place, and time. Appears well- developed and well-nourished. No distress. HEENT: Moist mucous membranes Head: Normocephalic and atraumatic Eyes: Right eye exhibits no discharge. Left eye exhibits no discharge. No scleral icterus Neck: Normal range of motion. No tracheal deviation present. Cardiovascular: Normal rate and regular rhythm. Pulmonary: Effort normal, no respiratory distress. Abd: Soft, nondistended, no rebound/guarding, no psoas or obturator signs, no tenderness at Mcberney's point, no Ellis's sign. Pt does not present with an exam that would be consistent with an acute surgical abdomen at this time, mild tenderness palpation midepigastric region Musculoskeletal: Normal range of motion Neurologic: Alert and oriented to person, place and time. Skin: Selman, warm and dry. Psychiatric: Normal mood and affect. Behavior is normal. Judgment and thought content normal. Nursing note and vital signs have been reviewed Assessment and plan: This is a 25-year-old female who presents ER today complaining of midepigastric abdominal discomfort. Patient presentation appears to be consistent with gastritis. Patient's labs are all within normal limits. Patient was given a GI cocktail, Bentyl, and Prilosec with complete resolution of her discomfort. Patient be discharged home with a prescription for Prilosec 20 mg twice daily x2 weeks until she is able to see her primary care physician. At this time, the patient in the present with any signs or symptoms that would be concerning for an acute surgical abdomen. Reassessment at the time of disposition demonstrates that the patient is in no acute distress. The patient has remained stable throughout the entire ED visit and is without objective evidence for acute process requiring urgent intervention or hospitalization. The patient is stable for discharge, counseling is provided as documented above, discussed symptomatic treatment and specific conditions for return. I have spoken with the patient/caregiver and discussed todays findings, in addition to providing specific details for the plan of care. Questions are answ ered and there is agreement with the plan. Definitive disposition and diagnosis as appropriate pending reevaluation and review of above. abdominal Pain Score (Numeric/FACES): 8 - Related Data Allergies Allergy/AdvReac Type Severity Reaction Status Date / Time No Known Allergies Allergy Verified 09/10/20 05:29 Home Meds: Home Meds Non-Formulary Medication [NF Drug] 1 each PO DAILY 09/10/20 [History] Omeprazole Magnesium [Prilosec Otc] 20 mg PO BID #28 tablet. 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 post delivery (retained placenta) Musculoskeletal History: Reports: Other (See Below) Other Musculoskeletal History: hand tremor Neurological History: Reports: None Psychiatric History: Reports: None Endocrine/Metabolic History: Reports: Hypothyroidism Hematologic History: Reports: None Immunologic History: Reports: None Oncologic (Cancer) History: Reports: None Dermatologic History: Reports: None - Infectious Disease History Infectious Disease History: Reports: None - Past Surgical History Head Surgeries/Procedures: Reports: None Social & Family History - Tobacco Use Tobacco Use Status *Q: Never Tobacco User - Caffeine Use Caffeine Use: Reports: None - Recreational Drug Use Recreational Drug Use: No ED ROS GENERAL - Review of Systems Review Of Systems: See Below ED EXAM, GENERAL - Physical Exam Exam: See Below Course - Vital Signs Last Recorded V/S: Last Vital Signs Temp 98.4 F 09/10/20 05:30 Pulse 77 09/10/20 05:30 Resp 18 09/10/20 05:30 BP 136/89 09/10/20 05:30 Pulse Ox 96 09/10/20 05:30 - Orders/Labs/Meds Labs: Laboratory Tests 09/10/20 09/10/20 09/10/20 Range/Units 05:45 05:45 05:52 WBC 8.06 (4.0-11.0) K/uL RBC 4.97 (4.30-5.90) M/uL Hgb 14.6 (12.0-16.0) g/dL Hct 43.6 (36.0-46.0) % MCV 87.7 (80.0-98.0) fL MCH 29.4 (27.0-32.0) pg MCHC 33.5 (31.0-37.0) g/dL RDW Std Deviation 41.1 (28.0-62.0) fl RDW Coeff of Jeronimo 13 (11.0-15.0) % Plt Count 277 (150-400) K/uL MPV 9.50 (7.40-12.00) fL Neut % (Auto) 49.5 (48.0-80.0) % Lymph % (Auto) 40.3 H (16.0-40.0) % Sibley % (Auto) 8.1 (0.0-15.0) % Eos % (Auto) 1.9 (0.0-7.0) % Baso % (Auto) 0.2 (0.0-1.5) % Neut # (Auto) 4.0 (1.4-5.7) K/uL Lymph # (Auto) 3.3 H (0.6-2.4) K/uL Sibley # (Auto) 0.7 (0.0-0.8) K/uL Eos # (Auto) 0.2 (0.0-0.7) K/uL Baso # (Auto) 0.0 (0.0-0.1) K/uL Nucleated RBC % 0.0 /100WBC Nucleated RBCs # 0 K/uL Sodium 133 L (136-145) mmol/L Potassium 3.6 (3.5-5.1) mmol/L Chloride 100 (98-107) mmol/L Carbon Dioxide 24.4 (21.0-32.0) mmol/L BUN 20 H (7.0-18.0) mg/dL Creatinine 0.8 (0.6-1.0) mg/dL Est Cr Clr Drug Dosing 94.44 mL/min Estimated GFR (MDRD) > 60.0 ml/min Glucose 96 (74-106) mg/dL Calcium 8.4 L (8.5-10.1) mg/dL Total Bilirubin 0.4 (0.2-1.0) mg/dL AST 14 L (15-37) IU/L ALT 22 (14-63) IU/L Alkaline Phosphatase 64 (46-116) U/L Total Protein 7.5 (6.4-8.2) g/dL Albumin 3.6 (3.4-5.0) g/dL Globulin 3.9 (2.6-4.0) g/dL Albumin/Globulin Ratio 0.9 (0.9-1.6) Lipase 106 (73-393) U/L Urine Color YELLOW Urine Appearance CLEAR Urine pH 6.0 (5.0-8.0) Ur Specific [place] >= 1.030 (1.001-1.035) Urine Protein NEGATIVE (NEGATIVE) mg/dL Urine Glucose (UA) NEGATIVE (NEGATIVE) mg/dL Urine Ketones NEGATIVE (NEGATIVE) mg/dL Urine Occult Blood TRACE-INTACT H (NEGATIVE) Urine Nitrite NEGATIVE (NEGATIVE) Urine Bilirubin NEGATIVE (NEGATIVE) Urine Urobilinogen 0.2 (<2.0) EU/dL Ur Leukocyte Esterase NEGATIVE (NEGATIVE) Urine RBC 0-2 (0-2/HPF) Urine WBC 0-1 (0-5/HPF) Ur Epithelial Cells OCCASIONAL (NONE-FEW) Urine Bacteria RARE (NEGATIVE) Urine HCG, Qual (NEGATIVE) 09/10/20 Range/Units 05:52 WBC (4.0-11.0) K/uL RBC (4.30-5.90) M/uL Hgb (12.0-16.0) g/dL Hct (36.0-46.0) % MCV (80.0-98.0) fL MCH (27.0-32.0) pg MCHC (31.0-37.0) g/dL RDW Std Deviation (28.0-62.0) fl RDW Coeff of Jeronimo (11.0-15.0) % Plt Count (150-400) K/uL MPV (7.40-12.00) fL Neut % (Auto) (48.0-80.0) % Lymph % (Auto) (16.0-40.0) % Sibley % (Auto) (0.0-15.0) % Eos % (Auto) (0.0-7.0) % Baso % (Auto) (0.0-1.5) % Neut # (Auto) (1.4-5.7) K/uL Lymph # (Auto) (0.6-2.4) K/uL Sibley # (Auto) (0.0-0.8) K/uL Eos # (Auto) (0.0-0.7) K/uL Baso # (Auto) (0.0-0.1) K/uL Nucleated RBC % /100WBC Nucleated RBCs # K/uL Sodium (136-145) mmol/L Potassium (3.5-5.1) mmol/L Chloride (98-107) mmol/L Carbon Dioxide (21.0-32.0) mmol/L BUN (7.0-18.0) mg/dL Creatinine (0.6-1.0) mg/dL Est Cr Clr Drug Dosing mL/min Estimated GFR (MDRD) ml/min Glucose (74-106) mg/dL Calcium (8.5-10.1) mg/dL Total Bilirubin (0.2-1.0) mg/dL AST (15-37) IU/L ALT (14-63) IU/L Alkaline Phosphatase (46-116) U/L Total Protein (6.4-8.2) g/dL Albumin (3.4-5.0) g/dL Globulin (2.6-4.0) g/dL Albumin/Globulin Ratio (0.9-1.6) Lipase (73-393) U/L Urine Color Urine Appearance Urine pH (5.0-8.0) Ur Specific [place] (1.001-1.035) Urine Protein (NEGATIVE) mg/dL Urine Glucose (UA) (NEGATIVE) mg/dL Urine Ketones (NEGATIVE) mg/dL Urine Occult Blood (NEGATIVE) Urine Nitrite (NEGATIVE) Urine Bilirubin (NEGATIVE) Urine Urobilinogen (<2.0) EU/dL Ur Leukocyte Esterase (NEGATIVE) Urine RBC (0-2/HPF) Urine WBC (0-5/HPF) Ur Epithelial Cells (NONE-FEW) Urine Bacteria (NEGATIVE) Urine HCG, Qual NEGATIVE (NEGATIVE) Meds: Medications Discontinued Medications Generic Name Dose Route Start Last Admin Trade Name Freq PRN Reason Stop Dose Admin Al Hydroxide/Mg Hydroxide 15 0 ml 09/10/20 05:34 09/10/20 05:46 ml/ Lidocaine HCl 5 ml PO 09/10/20 05:35 1 each ONETIME ONE Administration Dicyclomine HCl 20 mg 09/10/20 05:34 09/10/20 05:46 Bentyl PO 09/10/20 05:35 20 mg ONETIME ONE Administration Omeprazole 20 mg 09/10/20 05:35 09/10/20 05:46 Omeprazole PO 09/10/20 05:36 20 mg ONETIME ONE Administration Departure - Departure Time of Disposition: 06:20 Disposition: Home, Self-Care 01 Condition: Good Clinical Impression: Abdominal pain Qualifiers: Abdominal location: upper abdomen, unspecified Qualified Code(s): R10.10 - Upper abdominal pain, unspecified Gastritis Qualifiers: Gastritis type: unspecified gastritis Chronicity: acute Gastritis bleeding: presence of bleeding unspecified Qualified Code(s): K29.00 - Acute gastritis without bleeding - Discharge Information Instructions: Abdominal Pain, Adult, [id number], Gastritis, Adult, [id number] Referrals: Ish Maddox MD [Primary Care Provider] - Additional Instructions: You were seen and evaluated in the ER today secondary to your abdominal pain. The cause of abdominal pain is most likely secondary to increased amount of acid/gastritis in your stomach. You will be given a prescription for Prilosec to take twice a day until you are able to see your doctor in 2 weeks. The following information is given to patients seen in the emergency department who are being discharged to home. This information is to outline your options for follow-up care. We provide all patients seen in our emergency department with a follow-up referral. The need for follow-up, as well as the timing and circumstances, are variable depending upon the specifics of your emergency department visit. If you don't have a primary care physician on staff, we will provide you with a referral. We always advise you to contact your personal physician following an emergency department visit to inform them of the circumstance of the visit and for follow-up with them and/or the need for any referrals to a consulting specialist. The emergency department will also refer you to a specialist when appropriate. This referral assures that you have the opportunity for follow-up care with a specialist. All of these measure are taken in an effort to provide you with optimal care, which includes your follow-up. Under all circumstances we always encourage you to contact your private physician who remains a resource for coordinating your care. When calling for follow-up care, please make the office aware that this follow-up is from your recent emergency room visit. If for any reason you are refused follow-up, please contact the [facility] Emergency Department at and asked to speak to the emergency department charge nurse. [facility] [address] [place] [id number] [facility] [address] [place] [id number] Sepsis Event Note (ED) - Evaluation Sepsis Screening Result: No Definite Risk - Focused Exam Vital Signs: Vital Signs Temp Pulse Resp BP Pulse Ox 09/10/20 05:30 98.4 F 77 18 136/89 96
== END 2020-09-10 06:31 | disposition home or self-care (01) ==
LOC: MW.ED 05:10
DX: K29.00 Acute gastritis without bleeding (principal); K21.9 Gastro-esophageal reflux disease without esophagitis; Z79.899 Other long term (current) drug therapy
CPT/HCPCS: 36415; 80053; 81001; 81025; 83690; 85025; 99284; A9270; 99283